=== PATIENT | male | born 1990 | race Caucasian/White ===

== ENCOUNTER 2017-03-02 15:09 | Emergency (ER) | payer OTHER ==
[2017-03-02 15:23] VITALS: BP 124/61
[2017-03-02] MEDS ORDERED: Lidocaine/Epineph/Tetraca SOL* (LET solution) 4 ML BTL TOPICAL ONE (15:38)
--- NOTE | 2017-03-02 15:44 | UC ---
Ear Complaint HPI - HPI Summary HPI Summary: While squatting down low 3 nights ago, door swung into L ear and pt developed painful swelling to helix of ear. Small swelling is still present. Pt is mainly concerned about discomfort because he is having trouble sleeping now that he can 't sleep on his L side. Is not concerned about cosmetic outcome. - History of Current Complaint Chief Complaint: UCEar Stated Complaint: SKIN COMPLAINT ON EAR Time Seen by Provider: 03/02/17 15:22 Hx Obtained From: Patient Onset/Duration: Sudden Onset Severity Initially: Moderate Severity Currently: Mild Aggravating Factors: Nothing Associated Signs/Symptoms: Positive: Swelling @ - Allergies/Home Medications Allergies/Adverse Reactions: Allergies Allergy/AdvReac Type Severity Reaction Status Date / Time No Known Allergies Allergy Verified 03/02/17 15:15 PMH/Surg Hx/FS Hx/Imm Hx Endocrine History Of: Denies: Diabetes, Thyroid Disease Cardiovascular History Of: Denies: Cardiac Disorders, Hypertension Respiratory History Of: Reports: Asthma - NO MEDICATIONS Denies: COPD GI/ History Of: Denies: Ulcer - Surgical History Surgical History: Yes Surgery Procedure, Year, and Place: tooth extraction - 10/11/2015. ROTATOR CUFF. DEVIATED SEPTUM - Family History Known Family History: Positive: Cardiac Disease, Other - no FH RA, lupus, other autoimmune diseases - Social History Lives: With Family Alcohol Use: Occasionally Substance Use Type: None Smoking Status (MU): Heavy Every Day Tobacco Smoker Type: Cigarettes, Smokeless Tobacco Amount Used/How Often: 2 ppd Length of Time of Smoking/Using Tobacco: 10+ YEARS - Immunization History Most Recent Influenza Vaccination: NONE Most Recent Tetanus Shot: UTD Most Recent Pneumonia Vaccination: NONE Review of Systems Constitutional: Negative Skin: Negative Eyes: Negative ENT: Ear Ache Respiratory: Negative Cardiovascular: Negative Gastrointestinal: Negative Genitourinary: Negative Motor: Negative Neurovascular: Negative Musculoskeletal: Negative Neurological: Negative Psychological: Negative All Other Systems Reviewed And Are Negative: Yes Physical Exam Triage Information Reviewed: Yes Appearance: Well-Appearing, No Pain Distress, Well-Nourished Vital Signs: Initial Vital Signs Temp 99.3 F 03/02/17 15:17 Pulse 74 03/02/17 15:17 Resp 18 03/02/17 15:17 BP 124/61 03/02/17 15:17 Pulse Ox 97 03/02/17 15:17 Vital Signs Reviewed: Yes Eye Exam: Normal Eyes: Positive: Conjunctiva Clear ENT: Positive: Pharynx normal, TMs normal, Other: - 1.25cm round fluctuant lesion L helix. Negative: Nasal congestion, Nasal drainage Dental Exam: Normal Neck exam: Normal Neck: Positive: Supple, Nontender, No Lymphadenopathy Respiratory Exam: Normal Respiratory: Positive: Chest non-tender, Lungs clear, Normal breath sounds, No respiratory distress, No accessory muscle use Cardiovascular Exam: Normal Cardiovascular: Positive: RRR, No Murmur Musculoskeletal Exam: Normal Neurological Exam: Normal Neurological: Positive: Alert Psychological Exam: Normal Skin Exam: Other - L ear hematoma Procedures - Incision and Drainage Site: L ear Anesthesia: Topical Instrument(s): Needle Ear Complaint Course/Dx - Differential Dx/Diagnosis Provider Diagnoses: L auricular hematoma needle aspiration. Elevated blood pressure due to discomfort Discharge - Discharge Plan Condition: Stable Disposition: HOME Prescriptions: Cephalexin CAP* [Keflex 500 CAP*] 500 mg PO QID #20 cap Patient Education Materials: Hematoma (ED) Referrals: Hemant Goddard MD [Medical Doctor] - 5 Days
== END 2017-03-02 16:06 | disposition home or self-care (01) ==
LOC: UCEAST 15:09
DX: S00.432A Contusion of left ear, initial encounter (principal); R03.0 Elevated blood-pressure reading, without diagnosis of hypertension; J45.909 Unspecified asthma, uncomplicated; F17.210 Nicotine dependence, cigarettes, uncomplicated; W22.8XXA Striking against or struck by other objects, initial encounter; Y93.9 Activity, unspecified; Y92.9 Unspecified place or not applicable
CPT/HCPCS: 69000; 99212; G0463

== ENCOUNTER 2017-10-13 12:02 | Emergency (ER) | payer OTHER ==
[2017-10-13 12:16] VITALS: BP 128/55
--- NOTE | 2017-10-13 13:18 | UC ---
Shoulder Pain HPI - HPI Summary HPI Summary: 27 yo male with right shoulder pain x 4 days/left shoulder pain x 2 days occassional numbness down both arms no neck pain he does have upper back pain no trauma hx rotator cuff repair on right - History of Current Complaint Chief Complaint: UCUpperExtremity Stated Complaint: SHOULDER PAIN /NUMBNESS IN BOTH SHOULDERS Time Seen by Provider: 10/13/17 12:55 Hx Obtained From: Patient Onset/Duration: Gradual Onset Severity Initially: Moderate Severity Currently: Moderate Pain Intensity: 6 Pain Scale Used: 0-10 Numeric Aggravating Factor(s): Movement, Lifting Alleviating Factor(s): Rest, OTC Meds Associated Signs And Symptoms: Positive: Numbness/Tingling Related History: Dominant Hand Right - Allergies/Home Medications Allergies/Adverse Reactions: Allergies Allergy/AdvReac Type Severity Reaction Status Date / Time No Known Allergies Allergy Verified 10/13/17 12:16 PMH/Surg Hx/FS Hx/Imm Hx Previously Healthy: Yes - Surgical History Surgical History: Yes Surgery Procedure, Year, and Place: tooth extraction - 10/11/2015. Right ROTATOR CUFF. DEVIATED SEPTUM - Family History Known Family History: Positive: Cardiac Disease, Hypertension, Diabetes, Other - no FH RA, lupus, other autoimmune diseases, +FHx of [place] - Social History Alcohol Use: Occasionally Substance Use Type: None Smoking Status (MU): Heavy Every Day Tobacco Smoker Type: Cigarettes, Smokeless Tobacco Amount Used/How Often: 2 ppd Length of Time of Smoking/Using Tobacco: 10+ YEARS Household Exposure Type: Cigarettes Cessation Counseling: Patient Advised to Stop - Immunization History Most Recent Influenza Vaccination: NOT UTD Most Recent Tetanus Shot: 2016 Most Recent Pneumonia Vaccination: NONE Review of Systems Constitutional: Negative Skin: Negative Eyes: Negative ENT: Negative Respiratory: Negative Cardiovascular: Negative Gastrointestinal: Negative Genitourinary: Negative Motor: Negative Neurovascular: Negative Musculoskeletal: Arthralgia, Decreased ROM Neurological: Paresthesia Psychological: Negative Is Patient Immunocompromised?: No All Other Systems Reviewed And Are Negative: Yes Physical Exam Triage Information Reviewed: Yes Appearance: Well-Appearing, No Pain Distress, Well-Nourished Vital Signs: Initial Vital Signs Temp 99.0 F 10/13/17 12:11 Pulse 71 10/13/17 12:11 Resp 16 10/13/17 12:11 BP 128/55 10/13/17 12:11 Pulse Ox 100 12/18/17 12:11 Eyes: Positive: Conjunctiva Clear ENT: Positive: Hearing grossly normal. Negative: Nasal congestion, Nasal drainage, Trismus, Muffled voice, Hoarse voice Neck: Positive: Supple, Nontender, No Lymphadenopathy Respiratory: Positive: No respiratory distress, No accessory muscle use, Wheezing - a few scattered wheezes Cardiovascular: Positive: RRR, No Murmur Musculoskeletal: Positive: ROM Limited @ - R>L shoulder, Other: - distal n/v/ intact. Negative: Edema @ Neurological: Positive: Alert, Muscle Tone Normal Psychological Exam: Normal Skin Exam: Normal Skin: Positive: rashes Diagnostics - Radiology No standard instances Xray Interpretation: No Acute Changes - R Shoulder Radiology Interpretation Completed By: Radiologist Shoulder Course/Dx - Differential Dx/Diagnosis Provider Diagnoses: bilateral rhomboid myofascial strain/spasm. bilateral shoulder tendonitis. tobacco use/abuse Discharge - Discharge Plan Condition: Stable Disposition: HOME Prescriptions: Cyclobenzaprine TAB* [Flexeril TAB*] 5 mg PO TID PRN #12 tab PRN Reason: Spasms Naproxen Sodium [Naproxen Sodium 500 MG TAB] 500 mg PO BID PRN #30 tab PRN Reason: Pain Patient Education Materials: Muscle Strain (ED), Tendinitis (ED) Forms: *Work Release Referrals: Lico Aragon MD [Medical Doctor] - 1 Week Additional Instructions: PT consult I suggest you see an orthopedist about your right shoulder if it doesn't improve over the next week Images Head: 1 - no midline or paraspinous tenderness Front/Back of Body, Lg ([place]): 1 - tender/able to abduct to 80 degrees, pain with internal rotation 2 - non tender/able to abduct to 110 degrees 3 - tender rhomboid with spasm 4 - tender rhomboid
--- NOTE | 2017-10-13 13:37 | RAD ---
INDICATION: Right shoulder pain COMPARISON: None TECHNIQUE: Routine frontal, Y and axial views were obtained. FINDINGS: The bony structures, joint spaces, and soft tissues are normal for age. IMPRESSION: NEGATIVE EXAMINATION.
== END 2017-10-13 14:01 | disposition home or self-care (01) ==
LOC: UCEAST 12:02
DX: S46.812A Strain of other muscles, fascia and tendons at shoulder and upper arm level, left arm, initial encounter (principal); S46.811A Strain of other muscles, fascia and tendons at shoulder and upper arm level, right arm, initial encounter; M77.9 Enthesopathy, unspecified; F17.210 Nicotine dependence, cigarettes, uncomplicated; X58.XXXA Exposure to other specified factors, initial encounter; Y93.9 Activity, unspecified; Y92.9 Unspecified place or not applicable
CPT/HCPCS: 99212; G0463

== ENCOUNTER 2018-04-07 15:08 | Emergency (ER) | payer SELFPAY ==
[2018-04-07 15:29] VITALS: BP 109/62
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
--- NOTE | 2018-04-07 16:17 | RAD ---
INDICATION: Right wrist injury. TECHNIQUE: 3 views of the right wrist were obtained. FINDINGS: The bones are in normal alignment. No fracture is seen. Joint spaces appear maintained. IMPRESSION: NO EVIDENCE FOR FRACTURE.
== END 2018-04-07 16:55 | disposition home or self-care (01) ==
LOC: UCEAST 15:08
DX: M79.641 Pain in right hand (principal); M25.531 Pain in right wrist; Z82.49 Family history of ischemic heart disease and other diseases of the circulatory system; Z83.3 Family history of diabetes mellitus; Z80.9 Family history of malignant neoplasm, unspecified
CPT/HCPCS: 99212; G0463

== ENCOUNTER 2018-06-11 16:07 | Emergency (ER) | payer OTHER ==
[2018-06-11 16:15] VITALS: BP 150/90
[2018-06-11] MEDS ORDERED: HYDROcodone/ACETAMIN 5-325 MG* 1 TAB PO ONE (16:20)
--- NOTE | 2018-06-11 16:21 | UC ---
Shoulder Pain HPI - HPI Summary HPI Summary: [place] shoulder - History of Current Complaint Chief Complaint: UCUpperExtremity Stated Complaint: SHOULDER PAIN Time Seen by Provider: 06/11/18 16:15 Hx Obtained From: Patient Onset/Duration: Gradual Onset, Lasting Days Timing: Constant Pain Intensity: 5 Pain Scale Used: 0-10 Numeric Character: Aching, Throbbing Aggravating Factor(s): Movement Alleviating Factor(s): Nothing Associated Signs And Symptoms: Positive: Negative Related History: Dominant Hand Right - Allergies/Home Medications Allergies/Adverse Reactions: Allergies Allergy/AdvReac Type Severity Reaction Status Date / Time No Known Allergies Allergy Verified 06/11/18 16:15 Home Medications: Home Medications Melatonin 06/11/18 [History] PMH/Surg Hx/FS Hx/Imm Hx Previously Healthy: Yes - Surgical History Surgical History: Yes Surgery Procedure, Year, and Place: tooth extraction - 10/11/2015. Right ROTATOR CUFF. DEVIATED SEPTUM - Family History Known Family History: Positive: Cardiac Disease, Hypertension, Diabetes, Other - no FH RA, lupus, other autoimmune diseases, +FHx of [place] - Social History Occupation: Unemployed Lives: With Family Alcohol Use: None Alcohol Amount: stopped alcohol 04/13 Substance Use Type: None Smoking Status (MU): Heavy Every Day Tobacco Smoker Type: Cigarettes, Smokeless Tobacco Amount Used/How Often: 1ppd Length of Time of Smoking/Using Tobacco: 10+ YEARS Household Exposure Type: Cigarettes Cessation Counseling: Counseled 3+Min - 10 Min - Immunization History Most Recent Influenza Vaccination: NOT UTD Most Recent Tetanus Shot: 2016 Most Recent Pneumonia Vaccination: NONE Review of Systems Constitutional: Negative Skin: Negative Eyes: Negative ENT: Negative Respiratory: Negative Cardiovascular: Negative Gastrointestinal: Negative Genitourinary: Negative Motor: Negative Neurovascular: Negative Musculoskeletal: Arthralgia - left shoulder pain after fall Neurological: Negative Psychological: Negative Is Patient Immunocompromised?: No All Other Systems Reviewed And Are Negative: Yes Physical Exam Triage Information Reviewed: Yes Appearance: Well-Appearing, Well-Nourished, Pain Distress Vital Signs: Initial Vital Signs Temp 99 F 06/11/18 16:11 Pulse 105 06/11/18 16:11 Resp 18 06/11/18 16:11 BP 150/90 06/11/18 16:11 Pulse Ox 100 06/11/18 16:11 Vital Signs Reviewed: Yes Eye Exam: Normal Eyes: Positive: Conjunctiva Clear ENT Exam: Normal ENT: Positive: Normal ENT inspection, Hearing grossly normal, Pharynx normal. Negative: Trismus, Muffled voice, Hoarse voice Dental Exam: Normal Neck exam: Normal Neck: Positive: Supple, Nontender Respiratory Exam: Normal Respiratory: Positive: Chest non-tender, No respiratory distress, No accessory muscle use Cardiovascular Exam: Normal Cardiovascular: Positive: RRR, Pulses Normal, Brisk Capillary Refill Musculoskeletal Exam: Other Musculoskeletal: Positive: No Edema, Strength Limited @ - left shoulder, ROM Limited @ - left shoulder Neurological Exam: Normal Neurological: Positive: Alert, Muscle Tone Normal Psychological Exam: Normal Psychological: Positive: Normal Response To Family Skin Exam: Normal Diagnostics - Radiology No standard instances Xray Interpretation: No Acute Changes Radiology Interpretation Completed By: ED Physician, Radiologist Shoulder Course/Dx - Course Assessment/Plan: sling, ice, follow with ortho - Differential Dx/Diagnosis Provider Diagnoses: left shoulder injury, nicotine dependent, elevated blood pressure without dx of hypertension Discharge - Sign-Out/Discharge Documenting (check all that apply): Patient Departure - Discharge Plan Condition: Stable Disposition: HOME Prescriptions: Hydrocodone/Acetaminophen [Hydrocodone-Acetamin 5-325 mg] 1 each PO Q6H PRN #12 tablet MDD 4 PRN Reason: pain Ibuprofen TAB* [Motrin TAB* 600 MG] 600 mg PO Q6H PRN #40 tab PRN Reason: Pain Patient Education Materials: Shoulder Sprain (ED), Shoulder Pain (ED), R.I.C.E. Treatment (ED), How to Stop Smoking (ED), Hypertension (ED) Referrals: [facility] [place] [facility] [Outside] - 2 Weeks (bp management) Torsten Castellanos MD [Medical Doctor] - 4 Days - Billing Disposition and Condition Condition: STABLE Disposition: Home
--- NOTE | 2018-06-11 16:45 | RAD ---
INDICATION: Left clavicle trauma. TECHNIQUE: 2 views of the left clavicle were obtained. FINDINGS: The bones are in normal alignment. No fracture is seen. Joint spaces appear maintained. IMPRESSION: NO EVIDENCE FOR FRACTURE.
--- NOTE | 2018-06-11 16:46 | RAD ---
INDICATION: Left shoulder injury. TECHNIQUE: 4 views of the left shoulder were obtained. FINDINGS: The bones are in normal alignment. No fracture is seen. Joint spaces appear maintained. IMPRESSION: NO EVIDENCE OF FRACTURE.
== END 2018-06-11 17:20 | disposition home or self-care (01) ==
LOC: UCEAST 16:07
DX: S49.92XA Unspecified injury of left shoulder and upper arm, initial encounter (principal); W18.30XA Fall on same level, unspecified, initial encounter; Y93.01 Activity, walking, marching and hiking; Y92.59 Other trade areas as the place of occurrence of the external cause; R03.0 Elevated blood-pressure reading, without diagnosis of hypertension; Z71.6 Tobacco abuse counseling; F17.210 Nicotine dependence, cigarettes, uncomplicated
CPT/HCPCS: 99213; G0463

== ENCOUNTER 2018-07-09 19:26 | Emergency (ER) | payer OTHER ==
[2018-07-09 19:53] VITALS: BP 123/68
--- NOTE | 2018-07-09 20:07 | ED ---
Neck Pain - HPI Summary HPI Summary: stretched earlier today felt pop in the neck with that began developing pain in the upper central back , denies numbness or weakness , no recent trauma - History of Current Complaint Chief Complaint: UCGeneralIllness Stated Complaint: NECK PAIN Time Seen by Provider: 07/09/18 20:01 Hx Obtained From: Patient Mechanism Of Injury: No Known Trauma Timing: Constant Onset/Duration: Sudden Onset Severity Initially: Moderate Severity Currently: Moderate Pain Intensity: 6 Character: Sharp, Spasmotic Aggravating Factors: Movement Alleviating Factors: Nothing Associated Signs & Symptoms: Positive: Negative - Allergies/Home Medications Allergies/Adverse Reactions: Allergies Allergy/AdvReac Type Severity Reaction Status Date / Time No Known Allergies Allergy Verified 07/09/18 19:53 Home Medications: Home Medications Ibuprofen TAB* [Motrin TAB* 600 MG] 400 mg PO Q6H PRN 07/09/18 [History] QUEtiapine TAB* [Seroquel 25 MG TAB*] 25 mg PO BEDTIME 07/09/18 [History Confirmed 07/09/18] PMH/Surg Hx/FS Hx/Imm Hx Previously Healthy: Yes Endocrine/Hematology History: Denies: Hx Diabetes, Hx Thyroid Disease Cardiovascular History: Denies: Hx Hypertension Respiratory History: Reports: Hx Asthma Denies: Hx Chronic Obstructive Pulmonary Disease (COPD) GI History: Denies: Hx Ulcer - Surgical History Surgery Procedure, Year, and Place: tooth extraction - 10/11/2015. Right ROTATOR CUFF. DEVIATED SEPTUM Infectious Disease History: No Infectious Disease History: Denies: Hx Hepatitis, Hx Human Immunodeficiency Virus (HIV), History Other Infectious Disease, Traveled Outside the [place] in Last 30 Days - Family History Known Family History: Positive: Cardiac Disease, Hypertension, Diabetes, Other - no FH RA, lupus, other autoimmune diseases, +FHx of [place] - Social History Alcohol Use: None Alcohol Amount: stopped alcohol 04/13 Substance Use Type: Reports: None Smoking Status (MU): Heavy Every Day Tobacco Smoker Type: Cigarettes, Smokeless Tobacco Amount Used/How Often: 1ppd Length of Time of Smoking/Using Tobacco: 10+ YEARS Review of Systems Constitutional: Negative Eyes: Negative ENT: Negative Cardiovascular: Negative Respiratory: Negative Gastrointestinal: Negative Musculoskeletal: Other - decreased range of motion at the nekc Positive: Arthralgia - decreased range of motion laterally neck Skin: Negative Psychological: Other - hx. of bipolar disorder All Other Systems Reviewed And Are Negative: Yes Physical Exam Triage Information Reviewed: Yes Vital Signs On Initial Exam: Initial Vitals Temp Pulse Resp BP Pulse Ox 36.9 C 64 20 123/68 100 07/09/18 19:48 07/09/18 19:48 07/09/18 19:48 07/09/18 19:48 07/09/18 19:48 Vital Signs Reviewed: Yes Appearance: Positive: Well-Appearing Skin: Positive: Warm Head/Face: Positive: Normal Head/Face Inspection Eyes: Positive: Normal ENT: Positive: Normal ENT inspection Neck: Positive: Other: - loss of normal cervical lordosis , limited ROM Respiratory/Lung Sounds: Positive: Clear to Auscultation Cardiovascular: Positive: Normal Abdomen Description: Positive: Nontender Neurological: Positive: Other - dtrs symmetrical except absent triceps on the right unable to test deltoid strength secondary to left shoulder pain sensory exam normal. Diagnostics - Vital Signs Vital Signs Temp Pulse Resp BP Pulse Ox 07/09/18 19:48 36.9 C 64 20 123/68 100 - Laboratory Lab Statement: Any lab studies that have been ordered have been reviewed, and results considered in the medical decision making process. Neck Course/Dx - Diagnoses Provider Diagnoses: Cervical disc disorder at C6-C7 level with radiculopathy Discharge - Sign-Out/Discharge Documenting (check all that apply): Patient Departure All imaging exams completed and their final reports reviewed: Yes - Discharge Plan Condition: Good Disposition: HOME Prescriptions: Meloxicam [Mobic] 15 mg PO DAILY PRN #14 tablet PRN Reason: Pain - Back Patient Education Materials: Cervical Disc Herniation (ED) Referrals: No Primary Care Phys,NOPCP [Primary Care Provider] - Additional Instructions: follow up with manager intensive care unit in one week - Billing Disposition and Condition Condition: GOOD Disposition: Home
[2018-07-09] MEDS ORDERED: Ibuprofen TAB* 600 MG PO ONE (20:08)
--- NOTE | 2018-07-10 07:45 | RAD ---
INDICATION: Neck pain. COMPARISON: There are no relevant prior studies available for comparison. TECHNIQUE: 5 views of the cervical spine were obtained including lateral, oblique, AP, open-mouth odontoid views. FINDINGS: C1-C7 are visualized. The vertebra are in normal alignment. No prevertebral soft tissue swelling or fracture is seen. Disc spaces appear maintained. Neural foramen appear patent bilaterally. IMPRESSION: NO EVIDENCE FOR FRACTURE OR SUBLUXATION. R0
== END 2018-07-09 20:45 | disposition home or self-care (01) ==
LOC: UCEAST 19:26
DX: M50.123 Cervical disc disorder at C6-C7 level with radiculopathy (principal); F17.210 Nicotine dependence, cigarettes, uncomplicated; F17.290 Nicotine dependence, other tobacco product, uncomplicated
CPT/HCPCS: 72050; 99212; A9270-GY; G0463

== ENCOUNTER 2018-08-08 09:19 | Emergency (ER) | payer OTHER ==
[2018-08-08 09:26] VITALS: BP 114/64
--- NOTE | 2018-08-08 09:41 | UC ---
Respiratory Complaint HPI - HPI Summary HPI Summary: Pt c/o worsening nasal and chest congestion, productive cough that worsens with recumbent position, reports that when he coughs he brings up "black Shit" and c /o generalized malaise. Pt is a heavy every day smoker. reports that he "roll shis own cigarettes" and smokes up to 40 cigarettes per day. - History of Current Complaint Chief Complaint: UCRespiratory Stated Complaint: COUGH C Time Seen by Provider: 08/08/18 09:36 Hx Obtained From: Patient Onset/Duration: Gradual Onset, Lasting Days, Still Present, Worse Since - onset Timing: Constant Severity Initially: Mild Severity Currently: Mild Pain Intensity: 3 Character: Cough: Productive, Sputum Description: - black Aggravating Factors: Exertion, Deep Breaths, Recumbent Position Alleviating Factors: Nothing Associated Signs And Symptoms: Positive: URI, Nasal Congestion - Risk Factors Pulmonary Embolism Risk Factors: Smoking Cardiac Risk Factors: Smoking Tuberculosis Risk Factors: Smoking - Allergies/Home Medications Allergies/Adverse Reactions: Allergies Allergy/AdvReac Type Severity Reaction Status Date / Time No Known Allergies Allergy Verified 08/08/18 09:26 PMH/Surg Hx/FS Hx/Imm Hx Previously Healthy: Yes - Surgical History Surgical History: Yes Surgery Procedure, Year, and Place: tooth extraction - 10/11/2015. Right ROTATOR CUFF. DEVIATED SEPTUM - Family History Known Family History: Positive: Cardiac Disease, Hypertension, Diabetes, Other - no FH RA, lupus, other autoimmune diseases, +FHx of [place] - Social History Occupation: Employed Full-time Lives: With Family Alcohol Use: None Alcohol Amount: stopped alcohol 04/13 Substance Use Type: None Smoking Status (MU): Heavy Every Day Tobacco Smoker Type: Cigarettes, Smokeless Tobacco Amount Used/How Often: 1ppd Length of Time of Smoking/Using Tobacco: 10+ YEARS Household Exposure Type: Cigarettes - Immunization History Most Recent Influenza Vaccination: NOT UTD Most Recent Tetanus Shot: 2016 Most Recent Pneumonia Vaccination: NONE Vaccination Up to Date: No Review of Systems Constitutional: Fatigue Skin: Negative Eyes: Negative ENT: Nasal Discharge, Sinus Congestion Respiratory: Cough Cardiovascular: Negative Gastrointestinal: Negative Genitourinary: Negative Motor: Negative Neurovascular: Negative Musculoskeletal: Negative Neurological: Negative Psychological: Negative Is Patient Immunocompromised?: No All Other Systems Reviewed And Are Negative: Yes Physical Exam Triage Information Reviewed: Yes Appearance: Ill-Appearing Vital Signs: Initial Vital Signs Temp 97.9 F 08/08/18 09:24 Pulse 66 08/08/18 09:24 Resp 15 08/08/18 09:24 BP 114/64 08/08/18 09:24 Pulse Ox 100 08/08/18 09:24 Vital Signs Reviewed: Yes Eye Exam: Normal ENT Exam: Other ENT: Positive: Nasal congestion Dental Exam: Normal Neck exam: Normal Respiratory: Positive: Wheezing Cardiovascular Exam: Normal Musculoskeletal Exam: Normal Neurological Exam: Normal Psychological Exam: Normal Skin Exam: Normal UC Diagnostic Evaluation - Laboratory O2 Sat by Pulse Oximetry: 100 Respiratory Course/Dx - Differential Dx/Diagnosis Differential Diagnosis/HQI/PQRI: Bronchitis, Influenza, Other - pneumonia Provider Diagnoses: Bronchitis Discharge - Sign-Out/Discharge Documenting (check all that apply): Patient Departure All imaging exams completed and their final reports reviewed: No Studies - Discharge Plan Condition: Stable Disposition: HOME Prescriptions: Azithromycin TAB* [Zithromax TAB (Z-TOVA) 250 mg #6 tabs] 2 tab PO .TODAY, THEN 1 DAILY #1 tova Guaifenesin/Pseudoephedrne HCl [Mucinex D ER 600-60 mg Tablet] 1 each PO Q12H # 10 tab.er.12h Patient Education Materials: Acute Bronchitis (ED) Referrals: [facility] [Outside] - If Needed No Primary Care Phys,NOPCP [Primary Care Provider] - - Billing Disposition and Condition Condition: STABLE Disposition: Home
== END 2018-08-08 09:51 | disposition home or self-care (01) ==
LOC: UCEAST 09:19
DX: J40 Bronchitis, not specified as acute or chronic (principal); F17.210 Nicotine dependence, cigarettes, uncomplicated
CPT/HCPCS: 99212; G0463

== ENCOUNTER 2019-01-09 09:46 | Emergency (ER) | payer OTHER ==
[2019-01-09 09:58] VITALS: BP 126/71
--- NOTE | 2019-01-09 10:13 | UC ---
Hand/Wrist HPI - HPI Summary HPI Summary: Healthy 28-year-old male who reports approximately 14 hours ago suffering an injury to the lateral aspect of his right hand when an engine block fell on it. He has had previous fractures to this hand. His health is otherwise good. He denies significant past medical illness requiring hospitalization. The patient is in moderate distress. His blood pressure is slightly elevated with a systolic blood pressure of 126. I suspect this is because the patient is is in pain. History review includes asthma, and previous orthopedic complaints and surgery. - History Of Current Complaint Chief Complaint: UCUpperExtremity Stated Complaint: RT HAND INJURY Time Seen by Provider: 01/09/19 10:05 Hx Obtained From: Patient Pain Intensity: 6 - Allergies/Home Medications Allergies/Adverse Reactions: Allergies Allergy/AdvReac Type Severity Reaction Status Date / Time No Known Allergies Allergy Verified 01/09/19 09:59 Home Medications: Home Medications hydrOXYzine HCL TAB* [Atarax TAB 50 MG *] 50 mg PO BEDTIME 01/09/19 [History Confirmed 01/09/19] risperiDONE [Risperidone] 01/09/19 [History] PMH/Surg Hx/FS Hx/Imm Hx - Surgical History Surgical History: Yes Surgery Procedure, Year, and Place: tooth extraction - 10/11/2015. Right ROTATOR CUFF. DEVIATED SEPTUM - Family History Known Family History: Positive: Cardiac Disease, Hypertension, Diabetes, Other - no FH RA, lupus, other autoimmune diseases, +FHx of [place] - Social History Alcohol Use: None Alcohol Amount: stopped alcohol 04/13 Substance Use Type: None Smoking Status (MU): Heavy Every Day Tobacco Smoker Type: Cigarettes, Smokeless Tobacco Amount Used/How Often: 1ppd Length of Time of Smoking/Using Tobacco: 10+ YEARS Household Exposure Type: Cigarettes - Immunization History Most Recent Influenza Vaccination: NOT UTD Most Recent Tetanus Shot: 2016 Most Recent Pneumonia Vaccination: NONE Vaccination Up to Date: No Review of Systems All Other Systems Reviewed And Are Negative: Yes Constitutional: Positive: Fever Skin: Positive: Negative Respiratory: Positive: Negative Cardiovascular: Positive: Negative Gastrointestinal: Positive: Negative Genitourinary: Positive: Negative Neurovascular: Positive: Negative Musculoskeletal: Positive: Edema, Myalgia, Other: - erythema of right hand, dorsum Physical Exam - Summary Physical Exam Summary: Appearance: The patient is well-appearing, is in no pain or distress, and is well-nourished. Eyes: Conjunctiva are clear. Pupils are equal and reactive to light and accommodation. Extra ocular muscle movement is intact. ENT: The hearing is grossly normal, the pharynx is normal, and the TMs are normal. There is no muffled or hoarse voice. No stridor. Neck: The neck is supple and there is no lymphadenopathy. Respiratory: The chest is nontender to palpation and without crepitus. The lungs are clear, there are normal breath sounds, and there is no respiratory distress. No wheezes, rales or rhonchi. Cardiovascular: Heart sounds reveal a regular rate and rhythm. There are no clicks, rubs or murmurs. There are no carotid bruits or thrills. Circulation is grossly intact. Abdomen: The abdomen is soft and nontender. There is no organomegaly. Bowel sounds are present and within normal limits. No point tenderness at McBurneys point. Musculoskeletal: Strength is intact. The patient moves all extremities. Neurological: The patient is alert. Motor and sensory are examination grossly intact. Speech is normal. Psychological: The patient displays age appropriate behavior Skin: Negative for rashes. Vital Signs: Initial Vital Signs Temp 98 F 01/09/19 09:56 Pulse 77 01/09/19 09:56 Resp 18 01/09/19 09:56 BP 126/71 01/09/19 09:56 Pulse Ox 100 01/09/19 09:56 Hand/Wrist Course/Dx - Course Course Of Treatment: Healthy 28-year-old male who reports approximately 14 hours ago suffering an injury to the lateral aspect of his right hand when an engine block fell on it. He has had previous fractures to this hand. His health is otherwise good. He denies significant past medical illness requiring hospitalization. The patient is in moderate distress. His blood pressure is slightly elevated with a systolic blood pressure of 126. I suspect this is because the patient is is in pain. History review includes asthma, and previous orthopedic complaints and surgery. XRAY: 1. Soft tissue swelling about the dorsal aspect of the hand. 2. No acute fracture or traumatic malalignment. My diagnosis is contusion to the dorsum of the right hand. I will treat with splint, ice, elevation, ibuprofen and acetaminophen. And 9 vicodin. Reference #: [id number]. - Differential Dx/Diagnosis Differential Diagnosis/HQI/PQRI: Fracture, Sprain, Strain Provider Diagnosis: Contusion Discharge - Sign-Out/Discharge Documenting (check all that apply): Patient Departure All imaging exams completed and their final reports reviewed: Yes - Discharge Plan Condition: Stable Disposition: HOME Prescriptions: HYDROcodone/ACETAMIN 5-325 MG* [Herman 5-325 TAB*] 1 tab PO Q6H #9 tab MDD 4 Referrals: No Primary Care Phys,NOPCP [Primary Care Provider] - Additional Instructions: WE DISCUSSED: PLEASE SEEK CARE AT THE EMERGENCY DEPARTMENT IF SYMPTOMS WORSEN OR IF NEW SYMPTOMS DEVELOP. FOLLOW UP WITH YOUR PRIMARY CARE PHYSICIAN IF CONDITION CONTINUES BEYOND 3 DAYS WITHOUT IMPROVEMENT. We are open from 7 a.m. to 10 p.m. Call us with any questions or concerns. YOUR DIAGNOSIS IS: contusion of your right hand. No broken bones. YOUR PRESCRIPTION RECOMMENDATION IS: hydrocodone, 9 tabs. OTHER INSTRUCTIONS: warm moist heat in the morning; ice and elevation and splint during the day. Recheck next week with your doctor if you have continued pain or any increased disability. Try medication combination below. I have also given you some Vicodin, an opiod (9). For pain: Ibuprofen (Motrin and other brand names) 400-600mg PLUS acetaminophen (Tylenol and other brand names) 500mg - 1000mg every 8 hours. Maximum is 3 doses a day. If this dosage is required for more than 5 days, you should re-check with your doctor. The combination of these two over-the- counter medications can be more effective than each one taken alone. Please check with the pharmacist if you have questions about your allergies to these medications. - Billing Disposition and Condition Condition: STABLE Disposition: Home
== END 2019-01-09 11:14 | disposition home or self-care (01) ==
LOC: UCEAST 09:46
DX: S60.221A Contusion of right hand, initial encounter (principal); F17.210 Nicotine dependence, cigarettes, uncomplicated; W20.8XXA Other cause of strike by thrown, projected or falling object, initial encounter; Y92.9 Unspecified place or not applicable
CPT/HCPCS: 99213; G0463

== ENCOUNTER 2019-06-09 18:28 | Emergency (ER) | payer OTHER ==
[2019-06-09 18:46] VITALS: BP 141/76
--- NOTE | 2019-06-09 18:49 | UC ---
Skin Complaint HPI - HPI Summary HPI Summary: 28-year-old male who awakened this morning and noticed a small tender lump to the left inner thigh. He has no history of abscesses. Denies any fever or chills. - History of Current Complaint Chief Complaint: UCRespiratory Time Seen by Provider: 06/09/19 18:47 Stated Complaint: LUMP ON INNER THIGH Hx Obtained From: Patient Onset/Duration: Gradual Onset Skin Exposure Onset/Duration: Hours Ago Timing: Constant Onset Severity: Mild Current Severity: Mild Pain Intensity: 6 Location: Other - Left inner thigh Character: Redness - Minimal erythema present Aggravating Factor(s): Touch Alleviating Factor(s): Nothing Associated Signs & Symptoms: Positive: Negative - Allergy/Home Medications Allergies/Adverse Reactions: Allergies Allergy/AdvReac Type Severity Reaction Status Date / Time No Known Allergies Allergy Verified 06/09/19 18:40 Home Medications: Home Medications QUEtiapine TAB* [Seroquel 100 MG *] 100 mg PO BID 06/09/19 [History Confirmed ] QUEtiapine TAB* [Seroquel 100 MG *] 600 mg PO BEDTIME 06/09/19 [History Confirmed 06/09/19] Zolpidem TAB* [Ambien TAB*] 10 mg PO BEDTIME PRN 06/09/19 [History Confirmed ] PMH/Surg Hx/FS Hx/Imm Hx Previously Healthy: Yes Respiratory History: Asthma - Surgical History Surgical History: Yes Surgery Procedure, Year, and Place: tooth extraction - 10/11/2015. Right ROTATOR CUFF. DEVIATED SEPTUM - Family History Known Family History: Positive: Cardiac Disease, Hypertension, Diabetes, Other - no FH RA, lupus, other autoimmune diseases, +FHx of [place] - Social History Alcohol Use: None Alcohol Amount: stopped alcohol 04/13 Substance Use Type: None Smoking Status (MU): Heavy Every Day Tobacco Smoker Type: Cigarettes, Smokeless Tobacco Amount Used/How Often: 2-3 ppd Length of Time of Smoking/Using Tobacco: 10+ YEARS Household Exposure Type: Cigarettes - Immunization History Most Recent Influenza Vaccination: NOT UTD Most Recent Tetanus Shot: 2016 Most Recent Pneumonia Vaccination: NONE Vaccination Up to Date: No Review of Systems All Other Systems Reviewed And Are Negative: Yes Skin: Positive: Other - Left inner thigh area with minimal erythema and a palpable lump. Is Patient Immunocompromised?: No Physical Exam Triage Information Reviewed: Yes Appearance: Well-Appearing, No Pain Distress, Well-Nourished Vital Signs: Initial Vital Signs Temp 99.2 F 06/09/19 18:44 Pulse 105 06/09/19 18:44 Resp 18 06/09/19 18:44 BP 141/76 06/09/19 18:44 Pulse Ox 96 06/09/19 18:44 Vital Signs Reviewed: Yes Skin: Positive: Other - The left inner thigh has mild erythema, palpable cystic lump approximately 0.5 cm x 0.5 cm, tender on palpation. Course/Dx - Course Course Of Treatment: Patient is comfortable here. I am going to start him on an antibiotic in case this is the beginning of an abscess. He is to apply warm moist compresses to the area and follow-up with his primary care provider if no improvement in 1 week. - Diagnoses Provider Diagnosis: Cellulitis Discharge - Sign-Out/Discharge Documenting (check all that apply): Patient Departure All imaging exams completed and their final reports reviewed: No Studies - Discharge Plan Condition: Fair Disposition: HOME Prescriptions: Cephalexin CAP* [Keflex 500 CAP*] 500 mg PO TID 10 Days #30 cap Patient Education Materials: Cellulitis (DC) Referrals: No Primary Care Phys,NOPCP [Primary Care Provider] - [facility] [Outside] Additional Instructions: Warm moist compresses to the area 4-6 times a day 20 minutes each time. May take Tylenol every 4 hours and Motrin every 8 hours for pain. If the area worsens and you develop fever, chills, red streaks then you're to follow-up in the emergency room. Follow-up with her primary care provider in one week if no improvement. - Billing Disposition and Condition Condition: FAIR Disposition: Home - Attestation Statements Provider Attestation: I was available for consult. This patient was seen by the ANNABELLE. The patient was not presented to, seen by, or examined by me. Emanuel Velasquez MD
== END 2019-06-09 19:05 | disposition home or self-care (01) ==
LOC: UCEAST 18:28
DX: L03.116 Cellulitis of left lower limb (principal)
CPT/HCPCS: 99212; G0463